=== PATIENT | male | born 1985 | race Two or more races ===

== ENCOUNTER 2020-11-08 09:30 | Emergency (ER) | payer OTHER ==
[2020-11-08 10:24] LABS: BASOPHIL 0.6 % (0-2); EOSINOPHIL 3.1 % (0-5); HCT 43.3 % (42.0-52.0); HGB 14.9 g/dl (13.2-18.0); LYMPHOCYTE 44.3 % (15-48); MCH 28.9 pg (25.0-31.0); MCHC 34.4 g/dL (32.0-36.0); MCV 84.1 fL (78.0-100.0); MPV 10.7 fL (6.0-9.5); NRBC 0; PLT 173 K/uL (150-400); RBC 5.15 M/uL (4.70-6.00); RDW 12.2 % (11.5-14.0); WBC 3.3 K/uL (4.0-10.5)
[2020-11-08 10:41] LABS: ALBUMIN 4.3 g/dL (3.4-5.0); BILIRUBIN - TOTAL 0.5 mg/dL (0.2-1.0); BUN/CREAT RATIO (CALC) 13.1 RATIO; CREATININE 0.99 mg/dL (0.67-1.17); GLOBULIN (CALCULATION) 3.8 g/dL; POTASSIUM 4.4 mmol/L (3.5-5.1); TOTAL PROTEIN 8.1 g/dL (6.4-8.2)
[2020-11-08 12:10] LABS: BILIRUBIN NEGATIVE (NEGATIVE); BLOOD NEGATIVE Ery/uL (NEGATIVE); CLARITY CLEAR (CLEAR); COLOR YELLOW (YELLOW); GLUCOSE (U) NORMAL (NORMAL); LEUKOCYTES NEGATIVE Leu/uL (NEGATIVE); NITRITE NEGATIVE (NEGATIVE); PROTEIN NEGATIVE (NEGATIVE); SPECIFIC GRAVITY <=1.005 (1.001-1.030); UROBILINOGEN 0.2 mg/dL (0.2-1.0)
[2020-11-08] MEDS ORDERED: PEPCID AC20 MG PO (12:53)
[2020-11-08] MEDS ORDERED: DICYCLOMINE HCL20 MG PO (12:53)
== END 2020-11-08 13:17 | disposition home or self-care (01) ==
LOC: FER 09:30
PROVIDERS: Emergency Medicine
DX: R10.84 Generalized abdominal pain (principal); I10 Essential (primary) hypertension; Z79.899 Other long term (current) drug therapy; Z20.822 Contact with and (suspected) exposure to COVID-19
CPT/HCPCS: 36415; 80053; 81003; 82150; 83690; 85025; 96372; J0500; J2405; J7120; U0002